=== PATIENT | male | born 1945 | race Caucasian/White ===

== ENCOUNTER 2017-08-26 08:01 | Emergency (ER) | payer OTHER ==
[~2017-08-26] VITALS: Ht 175.3 cm; Wt 82.1 kg
[~2017-08-26 08:01] MED LIST: ACCUNEB SO1.25 MG/1 INH; ADULT LOW DOSE81 MG PO; ADVAIR 250-501 EACH INH; ADVAIR HFA 230M12 GM INH; ALLERGY10 MG PO; AMOXICILLIN 50500 M1 PO; ATENOLOL 100MG100 M2 PO; CARDIZEM CD180 MG PO; CIPROFLOXACIN500 M1 PO; CLARITIN10 MG PO; COUMADIN 2.5MG2.5 M1 PO; DUONEB 2.5-0.5 M3 ML INH; FISHOIL PO; FLAGYL500 MG PO; FLONASE 0.05%50 MCG NASAL; FLOVENT HFA 4444 MCG INH; LISINOPRIL40 MG PO; LOSARTAN POTAS100 MG PO; METOPROLOL TAR100 MG PO; NORCO 5-325 TA1 EACH PO; PRAVACHOL40 MG PO; PREDNISONE50 MG PO; TOPROL XL50 MG PO; ZETIA10 MG PO; ZOFRAN4 MG PO
[2017-08-26] MEDS ORDERED: DYMISTA NASAL S23 GM NASAL (08:16)
[2017-08-26] MEDS ORDERED: ALDACTONE25 MG PO (08:18)
[2017-08-26 08:25] LABS: HEMATOCRIT 55.3 % (42.0-52.0); HEMOGLOBIN 18.5 gm/dL (14.0-18.0); MCH 30.1 pg (26.0-34.0); MCHC 33.5 g/dL (28.0-37.0); MPV 10.5 fl. (7.2-11.1); NUCLEATED RBCS 0 /100WBC; PLATELET COUNT* 156 thou/uL (150-400); RBC 6.14 mil/uL (4.50-6.00); RDW-CV 13.6 % (10.5-14.5); WBC 14.7 thou/uL (4.0-11.0)
[2017-08-26 08:36] LABS: ANION GAP 15 mmol/L (7-16); BUN 32 mg/dL (7-18); CALCIUM 9.4 mg/dL (8.5-10.1); CHLORIDE 98 mmol/L (98-107); CO2 21 mmol/L (21-32); CREATININE 2.5 mg/dL (0.6-1.3); GLUCOSE 107 mg/dL (70-99); POTASSIUM 4.9 mmol/L (3.5-5.1); SODIUM 134 mmol/L (136-145)
[2017-08-26 08:43] LABS: ALBUMIN 4.3 g/dL (3.4-5.0); ALKALINE PHOSPHATASE 114 U/L (46-116); LIPASE 206 U/L (73-393); SGOT 59 U/L (15-37); SGPT 52 U/L (30-65); TOTAL BILIRUBIN 1.6 mg/dL (<0.1-1.0); TOTAL PROTEIN 8.3 g/dL (6.4-8.2); TROPONIN-I LEVEL <0.06 ng/mL (<0.06)
[2017-08-26 08:47] LABS: ABSOLUTE LYMPHOCYTES 2.4 thou/uL (0.8-5.3); ABSOLUTE MONOCYTES 2.1 thou/uL (0.0-1.2); ABSOLUTE NEUTROPHILS 10.3 thou/uL (1.6-8.1)
[2017-08-26 08:48] LABS: LARGE PLATELETS RARE; PLATELET ESTIMATE ADEQUATE
[2017-08-26 08:56] LABS: APTT 34.8 Seconds (25.0-31.3); INR 1.8; PROTIME 17.4 Seconds (9.20-11.50)
[2017-08-26] MEDS ORDERED: CIPROFLOXACIN500 M1 PO (09:56)
[2017-08-26 10:12] VITALS: BP 142/79
--- NOTE | 2017-08-27 14:31 | EKG ---
[place] [address] ELECTROCARDIOGRAM REPORT Name: LIONEL COPE Room: [facility]#: [id number] Admission: 08/26/17 Attend Phys: Discharge: 08/26/17 Date of : 49 Report #: [id number] THIS REPORT FOR: //name// [facility] ED Test Date: 2017-08-26 Test Time: 08:25:24 Pat Name: LIONEL COPE Department: Room: Gender: M Harness Cutter: LUZ MARIA : 1945 Requested By: Chapin Sarabia Order Number: [id number] MD: Jose Avilez Measurements Intervals [place] Rate: 123 P: [place]: QRS: 78 QRSD: 115 T: -58 QT: 313 QTc: 448 Interpretive Statements Atrial fibrillation Nonspecific intraventricular conduction delay Nonspecific repol abnormality, diffuse leads Baseline wander in lead(s) V3 Compared to ECG 03/27/2017 02:57:31 No significant changes Electronically Signed On 08-27-2017 14:31:16 CDT by Jose Avilez [email or web address] <ELECTRONICALLY SIGNED> By: Jose Avilez MD, FACC 08/27/17 1431 0825 0825 Jose Avilez MD, [facility] /EPI
== END 2017-08-26 10:15 | disposition home or self-care (01) ==
LOC: M.ERS 08:01
PROVIDERS: Family Medicine
DX: R19.7 Diarrhea, unspecified (principal); I10 Essential (primary) hypertension; Z90.89 Acquired absence of other organs; I25.10 Atherosclerotic heart disease of native coronary artery without angina pectoris; Z88.2 Allergy status to sulfonamides

== ENCOUNTER 2018-04-29 09:59 | Inpatient (IN) | payer OTHER ==
[~2018-04-29] VITALS: Ht 172.7 cm; Wt 83.0 kg
[~2018-04-29 09:59] MED LIST changes: +ALDACTONE25 MG PO; +DYMISTA NASAL S23 GM NASAL; +METOPROLOL SUCC50 MG PO; -METOPROLOL TAR100 MG PO
[2018-04-29 10:05] VITALS: BP 202/109
[2018-04-29] MEDS ORDERED: THERA TEARS15 ML OPHTHALMIC (10:08)
[2018-04-29] MEDS ORDERED: CARDIZEM CD120 MG PO (10:09)
[2018-04-29] MEDS ORDERED: IPRATROPIU0.2 MG/1 M INH (10:09)
[2018-04-29] MEDS ORDERED: VITAMIN D31000 UNIT PO (10:10)
[2018-04-29] MEDS ORDERED: ROCALTROL0.25 MCG PO (10:10)
[2018-04-29] MEDS ORDERED: TRIAMCINOLONE A80 G2 TOP (10:11)
[2018-04-29 10:26] LABS: ABSOLUTE BASOPHILS 0.1 thou/uL (0.0-0.2); ABSOLUTE EOSINOPHILS 0.1 thou/uL (0.0-0.7); ABSOLUTE LYMPHOCYTES 2.8 thou/uL (0.8-5.3); ABSOLUTE NEUTROPHILS 7.5 thou/uL (1.6-8.1); BASOPHILS 1.2 %; EOSINOPHILS 0.6 %; HEMATOCRIT 49.6 % (42.0-52.0); HEMOGLOBIN 16.3 gm/dL (14.0-18.0); LYMPHOCYTES 24.2 %; MCH 30.4 pg (26.0-34.0); MCHC 32.9 g/dL (28.0-37.0); MCV 92.4 fL (80.0-100.0); MPV 9.6 fl. (7.2-11.1); NUCLEATED RBCS 0 /100WBC; PLATELET COUNT* 211 thou/uL (150-400); RBC 5.37 mil/uL (4.50-6.00); RDW-CV 13.9 % (10.5-14.5); WBC 11.6 thou/uL (4.0-11.0)
[2018-04-29 10:33] LABS: ANION GAP 7 mmol/L (7-16); BUN 23 mg/dL (7-18); CALCIUM 9.4 mg/dL (8.5-10.1); CHLORIDE 100 mmol/L (98-107); CO2 31 mmol/L (21-32); GLUCOSE 109 mg/dL (70-99); POTASSIUM 4.8 mmol/L (3.5-5.1); SODIUM 138 mmol/L (136-145)
[2018-04-29 10:34] LABS: INR 2.8; PROTIME 28.8 Seconds (9.20-11.50)
[2018-04-29 10:44] LABS: ALBUMIN 4.4 g/dL (3.4-5.0); ALKALINE PHOSPHATASE 87 U/L (46-116); LIPASE 262 U/L (73-393); NT-PRO BRAIN NAT PEPTIDE 1188 pg/mL (<300); SGOT 30 U/L (15-37); SGPT 28 U/L (30-65); TOTAL BILIRUBIN 1.4 mg/dL (<0.1-1.0); TOTAL PROTEIN 7.8 g/dL (6.4-8.2); TROPONIN-I LEVEL <0.06 ng/mL (<0.06)
[2018-04-29 11:54] VITALS: BP 171/95
[2018-04-29 12:21] VITALS: BP 205/95
[2018-04-29 16:14] VITALS: BP 148/94
[2018-04-29 20:00] VITALS: BP 155/104
[2018-04-30] VITALS (7 sets, daily range): BP systolic 148–197; BP diastolic 78–105
[2018-04-30 02:05] LABS: GLYCOHEMOGLOBIN (HGB A1C) 5.9 % (4.8-5.6)
[2018-04-30 04:35] LABS: ABSOLUTE BASOPHILS 0.1 thou/uL (0.0-0.2); ABSOLUTE LYMPHOCYTES 1.7 thou/uL (0.8-5.3); ABSOLUTE MONOCYTES 0.9 thou/uL (0.0-1.2); ABSOLUTE NEUTROPHILS 5.3 thou/uL (1.6-8.1); BASOPHILS 0.6 %; EOSINOPHILS 0.6 %; HEMATOCRIT 42.8 % (42.0-52.0); LYMPHOCYTES 21.4 %; MCH 30.5 pg (26.0-34.0); MCHC 33.3 g/dL (28.0-37.0); MCV 91.5 fL (80.0-100.0); MONOCYTES 10.8 %; MPV 9.8 fl. (7.2-11.1); NUCLEATED RBCS 0 /100WBC; PLATELET COUNT* 166 thou/uL (150-400); POLYS 66.6 %; RBC 4.68 mil/uL (4.50-6.00); RDW-CV 13.7 % (10.5-14.5)
[2018-04-30 04:36] LABS: INR 2.5; PROTIME 25.5 Seconds (9.20-11.50)
[2018-04-30 04:43] LABS: CHOLESTEROL 124 mg/dL (<200); HDL CHOLESTEROL 35 mg/dL (>40); LDL CHOLESTEROL 69 mg/dL (<100); TC:HDL 3.5 Ratio (Not establshd); TRIGLYCERIDE 103 mg/dL (<150); VLDL 21 mg/dL (<40)
[2018-04-30 04:46] LABS: HEMOGLOBIN 14.3 gm/dL (14.0-18.0)
[2018-04-30 04:54] LABS: CALCIUM 8.1 mg/dL (8.5-10.1); CREATININE 1.7 mg/dL (0.6-1.3); POTASSIUM 4.1 mmol/L (3.5-5.1)
[2018-04-30 05:07] LABS: SERUM ASSESSMENT CLEAR
--- NOTE | 2018-04-30 15:35 | EKG ---
[place] [address] ELECTROCARDIOGRAM REPORT Name: LIONEL COPE Room: [address] ADM IN [facility].#: [id number] Admission: 04/29/18 Attend Phys: Mychal Clayton MD Discharge: Date of : 49 Report #: [id number] THIS REPORT FOR: //name// [facility] ED Test Date: 2018-04-29 Test Time: 10:06:27 Pat Name: LIONEL COPE Department: Room: [facility] Gender: Standards Analyst: Gorge PASCUAL : 1945 Requested By: Tor Carrillo Order Number: [id number] MD: Jose Avilez Measurements Intervals [place] Rate: 87 P: [place]: QRS: 57 QRSD: 110 T: -56 QT: 393 QTc: 473 Interpretive Statements Atrial fibrillation Inferior infarct, age indeterminate, possible Baseline wander in lead(s) V4 Compared to ECG 08/26/2017 08:25:24 Myocardial infarct finding now present Intraventricular conduction delay no longer present Early repolarization no longer present Electronically Signed On 04-30-2018 15:35:41 VETERINARY INSPECTOR by Jose Avilez [email or web address] <ELECTRONICALLY SIGNED> By: Jose Avilez MD, FACC 04/30/18 1535 1006 1006 Jose Avilez MD, FACC /EPI
--- NOTE | 2018-04-30 18:13 | CON ---
[address] [address] CONSULTATION Name: LIONEL COPE Room: [address] IN .R.#: [id number] Admission: 04/29/18 Attend Phys: Mychal Clayton MD Discharge: Date of : 49 Report #: [id number] THIS REPORT FOR: //name// CC: Mychal Argueta DATE OF SERVICE: 04/30/2018 HISTORY OF PRESENT ILLNESS: This is a 72-year-old male patient for whom a routine consultation was requested earlier in the afternoon for TIA. As I understand from the nurses as well as reviewing the records from Emergency Room and H and P and later on taking the history from the patient that he noticed that his right upper extremity was not working properly, although, he noticed these symptoms around 9:30 when he was trying to move his computer mouse, I am not certain that the symptoms started at that time. Prior to that, he did not do anything much with the right arm and may not have noticed those symptoms. It is very possible that the patient may have just woken up with the symptoms. In any event, he came to Emergency Room. He was seen by Dr. Carrillo. Dr. Carrillo did a CT scan of the head and did the blood workup. 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 Therefore, he was not considered a candidate for TPA and he was admitted under Dr. Clayton who did the patient H and P and that was reviewed. Subsequently, a routine neurological consultation was requested in this patient. I talked to the nurses and it looks like the patient's symptoms were rather minor when he came in, but his symptoms have progressed since then. He has developed speech difficulty and that is worse than when he came in. On my examination later on, he is definitely weak in the right upper extremity. REVIEW OF SYSTEMS: His 14-point review of system was carried out. He has a history of TIA, but that history is not clearly defined. He has a history of COPD. He does have a history of hypertension and his blood pressure was pretty high when he came. He does not know whether the blood pressure goes that high or not. He does apparently also has a history of atrial fibrillation. This was his relevant 14-point review of system. He does have a history of bypass surgery. His kidney function is pretty significantly impaired and according to the record, he has a 20% functional right kidney and 70% functional left kidney. I am not totally sure about that, but that has been noticed in his records. His creatinine has been 2 here and GFR has been 33. PAST MEDICAL HISTORY: Positive for both coronary artery disease as well as TIAs in the past. FAMILY HISTORY: Negative for any early age stroke. SOCIAL HISTORY: He does not smoke, but he drinks 2 [place] [address] CONSULTATION Name: LIONEL COPE Room: [address] IN [facility]#: [id number] Admission: 04/29/18 Attend Phys: Mychal Clayton MD Discharge: Date of : 49 Report #: [id number] PHYSICAL EXAMINATION: Indicates he is alert. He is responsive. He is oriented, but his speech is markedly slurred and appeared to be dysarthric. His cranial nerve examination 2-12 indicates right facial weakness. He is definitely weak in the right upper extremity. Right lower extremity, he moves, but he does appear to be weaker there. His reflexes are symmetrical. He does somewhat poorly with the right [id number]-iddc, but it is difficult to tell because he is weak there. He has no thyroid mass. His hearing looks adequate. Heart examination indicates that he has a replaced wall. He does have rhonchi, which are scattered. His blood pressure has been 148/85. It was pretty high when he came in and at one time, it was 202/109. His pulse rate is 82, temperature is 97.7. I reviewed his MRI films and it does show an acute stroke on the left side of the josiah. They are still formatting his MRA, but it looks like his basilar artery is patent. IMPRESSION: 1. 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 The best I can tell the basilar artery is patent, but we will await the final report from the radiologist. 2. History of hypertension. We need to allow permissive hypertension in this patient. RECOMMENDATION: Multiple things were considered in this patient and unfortunately, I do not think much can be done. This patient was not a TPA candidate because he is on Coumadin and his INR was 2.8, and TPA was not given by Emergency Room physician because of that and that was appropriate thing to do because the patient is not a TPA candidate because of being on Coumadin and INR being 2.8. He has deteriorated as far as neurological deficit is concerned. That is very typical of lacunar cerebrovascular accident or a small vessel cerebrovascular accident. Unfortunately, nothing can be done about that. I still suspect he may have woken up with the cerebrovascular accident and he just noticed the deficit at 9:30 when he tried to use his computer. I went ahead and did an extensive workup in this patient tonight to see if he can find any large vessel disease or any intervention, which can be done in this patient. Unfortunately, we did not find any disease for which intervention can be done in this patient so far, especially because basilar artery is patent. All the images are not out yet and it was just a single image, which I was able to look at. I will see this patient later on again today and add an addendum to that, but have discussed all of it in detail with the patient. Thank you [place] [address] CONSULTATION Name: LIONEL COPE Jenn Room: [address] IN [facility]#: [id number] Admission: 04/29/18 Attend Phys: Mychal Clayton MD Discharge: Date of : 49 Report #: [id number] this addendum is being added at the time of signing this note. Patient was reevaluated today. Patient's neuro deficits stabilized after increasing his blood pressure to some extend. So I asked the nurses to keep his blood pressure between 150-180 systolic. They should coordinate the choice of his antihypertensive with business continuity director. His examination this morning was not much different than last night. Official report of the MRA indicated the same thing. 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 He is already on anticoagulation and aspirin. We will await rest of the workup to see if anything differently to be done. I discussed the situation again with the patient and the family. More than 50 minutes of time was spent taking care of this patient and majority of that time was spent counseling the patient and coordinating his care. Dr. Acharya will follow-up this patient from tomorrow and look at rest the workup and leave further recommendation <ELECTRONICALLY SIGNED> By: Nirav Browning MD 04/30/18 1813 0222 [id number] Browning MD /nt
[2018-05-01] VITALS (7 sets, daily range): BP systolic 143–173; BP diastolic 72–94
[2018-05-01 04:46] LABS: INR 1.8; PROTIME 18.1 Seconds (9.20-11.50)
[2018-05-01 04:52] LABS: ALBUMIN 3.4 g/dL (3.4-5.0); CALCIUM 8.2 mg/dL (8.5-10.1); CREATININE 1.7 mg/dL (0.6-1.3); POTASSIUM 4.1 mmol/L (3.5-5.1); TOTAL BILIRUBIN 2.4 mg/dL (<0.1-1.0); TOTAL PROTEIN 6.2 g/dL (6.4-8.2)
[2018-05-01 04:53] LABS: ABSOLUTE BASOPHILS 0.1 thou/uL (0.0-0.2); ABSOLUTE EOSINOPHILS 0.1 thou/uL (0.0-0.7); ABSOLUTE LYMPHOCYTES 1.8 thou/uL (0.8-5.3); ABSOLUTE MONOCYTES 0.9 thou/uL (0.0-1.2); ABSOLUTE NEUTROPHILS 5.4 thou/uL (1.6-8.1); BASOPHILS 0.6 %; EOSINOPHILS 0.6 %; HEMATOCRIT 45.4 % (42.0-52.0); HEMOGLOBIN 14.9 gm/dL (14.0-18.0); LYMPHOCYTES 21.7 %; MCH 30.3 pg (26.0-34.0); MCHC 32.8 g/dL (28.0-37.0); MCV 92.4 fL (80.0-100.0); MONOCYTES 11.5 %; MPV 10.3 fl. (7.2-11.1); NUCLEATED RBCS 0 /100WBC; PLATELET COUNT* 177 thou/uL (150-400); POLYS 65.6 %; RBC 4.91 mil/uL (4.50-6.00); RDW-CV 14.1 % (10.5-14.5); WBC 8.3 thou/uL (4.0-11.0)
[2018-05-01] MEDS ORDERED: ASPIRIN81 M2 PO (12:34)
[2018-05-01] MEDS ORDERED: FOLIC ACID 1 MG1 MG PO (12:37)
[2018-05-01] MEDS ORDERED: VITAMIN B-1100 M1 PO (12:38)
[2018-05-01] MEDS ORDERED: CENTRUM SILVER1 EAC4 PO (12:39)
== END 2018-05-01 13:40 | disposition home or self-care (01) | DRG 65 ==
LOC: M.ERS 09:59 → M.2W 11:04 → M.TBA-ER 11:04 → M.2W 12:24
PROVIDERS: Emergency Medicine; ADMIT Internal Medicine
DX: I63.231 Cerebral infarction due to unspecified occlusion or stenosis of right carotid arteries (principal); N17.9 Acute kidney failure, unspecified; I13.0 Hypertensive heart and chronic kidney disease with heart failure and stage 1 through stage 4 chronic kidney disease, or unspecified chronic kidney disease; I50.9 Heart failure, unspecified; I48.91 Unspecified atrial fibrillation; I25.10 Atherosclerotic heart disease of native coronary artery without angina pectoris; F10.20 Alcohol dependence, uncomplicated; N18.9 Chronic kidney disease, unspecified; E53.8 Deficiency of other specified B group vitamins; J44.9 Chronic obstructive pulmonary disease, unspecified; Z87.891 Personal history of nicotine dependence; Z95.1 Presence of aortocoronary bypass graft; Z95.2 Presence of prosthetic heart valve; Z90.49 Acquired absence of other specified parts of digestive tract; Z79.01 Long term (current) use of anticoagulants; Z79.899 Other long term (current) drug therapy; Z88.2 Allergy status to sulfonamides

== ENCOUNTER 2019-02-11 14:56 | Inpatient (IN) | payer OTHER ==
[~2019-02-11] VITALS: Ht 172.7 cm; Wt 76.7 kg
[~2019-02-11 14:56] MED LIST changes: +ASPIRIN81 M2 PO; +CARDIZEM CD120 MG PO; +CENTRUM SILVER1 EAC4 PO; +FOLIC ACID 1 MG1 MG PO; +IPRATROPIU0.2 MG/1 M INH; +ROCALTROL0.25 MCG PO; +THERA TEARS15 ML OPHTHALMIC; +TRIAMCINOLONE A80 G2 TOP; +VITAMIN B-1100 M1 PO; +VITAMIN D31000 UNIT PO
[2019-02-11 14:57] VITALS: BP 180/91
[2019-02-11 15:49] LABS: ABSOLUTE BASOPHILS 0.1 thou/uL (0.0-0.2); ABSOLUTE EOSINOPHILS 0.1 thou/uL (0.0-0.7); ABSOLUTE LYMPHOCYTES 1.9 thou/uL (0.8-5.3); ABSOLUTE MONOCYTES 0.8 thou/uL (0.0-1.2); ABSOLUTE NEUTROPHILS 5.9 thou/uL (1.6-8.1); BASOPHILS 0.9 %; EOSINOPHILS 0.8 %; HEMATOCRIT 45.2 % (42.0-52.0); HEMOGLOBIN 15.4 gm/dL (14.0-18.0); LYMPHOCYTES 21.1 %; MCH 31.5 pg (26.0-34.0); MCV 92.6 fL (80.0-100.0); MONOCYTES 9.7 %; MPV 10.1 fl. (7.2-11.1); NUCLEATED RBCS 0 /100WBC; PLATELET COUNT* 174 thou/uL (150-400); POLYS 67.5 %; RBC 4.88 mil/uL (4.50-6.00); RDW-CV 14.4 % (10.5-14.5); WBC 8.8 thou/uL (4.0-11.0)
[2019-02-11 15:59] LABS: ANION GAP 8 mmol/L (7-16); BUN 17 mg/dL (7-18); CALCIUM 8.6 mg/dL (8.5-10.1); CHLORIDE 106 mmol/L (98-107); CO2 28 mmol/L (21-32); CREATININE 1.6 mg/dL (0.6-1.3); GLUCOSE 106 mg/dL (70-99); POTASSIUM 4.1 mmol/L (3.5-5.1); SODIUM 142 mmol/L (136-145)
[2019-02-11 16:02] LABS: APTT 33.4 Seconds (25.0-31.3); INR 2.8; PROTIME 27.6 Seconds (9.20-11.50)
[2019-02-11 16:10] LABS: ALBUMIN 3.8 g/dL (3.4-5.0); ALKALINE PHOSPHATASE 103 U/L (46-116); NT-PRO BRAIN NAT PEPTIDE 2147 pg/mL (<300); SGOT 26 U/L (15-37); SGPT 27 U/L (30-65); TOTAL BILIRUBIN 1.2 mg/dL (<0.1-1.0); TOTAL PROTEIN 6.8 g/dL (6.4-8.2); TROPONIN-I LEVEL <0.06 ng/mL (<0.06)
[2019-02-11] MEDS ORDERED: LISINOPRIL10 MG PO (17:00)
[2019-02-11 17:43] LABS: URINE BILIRUBIN NEGATIVE (Negative); URINE BLOOD NEGATIVE (Negative); URINE CLARITY CLEAR; URINE COLOR YELLOW; URINE GLUCOSE-RANDOM NEGATIVE (Negative); URINE KETONES NEGATIVE (Negative); URINE LEUKOCYTES-REFLEX NEGATIVE (Negative); URINE NITRITE-REFLEX NEGATIVE (Negative); URINE PROTEIN TRACE (Negative); URINE SPECIFIC GRAVITY 1.015 (1.005-1.030); URINE UROBILINOGEN 0.2 E.U./dl (0.2-1.0)
[2019-02-11 18:28] VITALS: BP 179/104
--- NOTE | 2019-02-11 19:03 | NUR ---
ER ADMIT TO ROOM 223 VIA CART FROM ER. ADMISSION HX COMPLETED. BEHAVIORAL INTERVENTION SPECIALIST PLACED TRACKING AFIB. DENIES DIZZINESS, PAIN OR ANY DISCOMFORT AT THIS TIME. ORIENTED TO ROOM/CALL LIGHT AND INTRODUCED TO PLAN OF CARE. AT BEDSIDE. WILL PASS ON REPORT TO ONCOMING NURSE FOR CONTINUATION OF CARE.
[2019-02-11 20:00] VITALS: BP 157/73
[2019-02-12] VITALS: BP 121/70
[2019-02-12 04:00] VITALS: BP 127/70
--- NOTE | 2019-02-12 05:03 | NUR ---
PATIENT SLEPT WELL DURING THE NIGHT. PT USES CALL LIGHT APPROPRIATELY FOR ASSISTANCE TO THE BATHROOM. PT SAID HE IS STILL DIZZY WHEN AMBULATING AND PT HAD ONE EPISODE OF NAUSEA AFTER RETURNING FROM THE BATHROOM. ZOFRAN GIVEN AND AFTER CHECKING BACK WITH THE PATIENT HE SAID HE FELT BETTER. FREQUENTLY USED ITEMS AND CALL LIGHT WITHIN REACH. SIDERAILS UPX2 AND BED ALARM ON. WILL CONTINUE TO MONITOR.
[2019-02-12 07:37] LABS: ALBUMIN 3.3 g/dL (3.4-5.0); ALKALINE PHOSPHATASE 92 U/L (46-116); ANION GAP 7 mmol/L (7-16); BUN 14 mg/dL (7-18); CALCIUM 8.8 mg/dL (8.5-10.1); CHLORIDE 106 mmol/L (98-107); CHOLESTEROL 127 mg/dL (<200); CO2 27 mmol/L (21-32); CREATININE 1.5 mg/dL (0.6-1.3); GLUCOSE 99 mg/dL (70-99); HDL CHOLESTEROL 38 mg/dL (>40); LDL CHOLESTEROL 72 mg/dL (<100); POTASSIUM 4.6 mmol/L (3.5-5.1); SGOT 22 U/L (15-37); SGPT 23 U/L (30-65); SODIUM 140 mmol/L (136-145); TC:HDL 3.3 Ratio (Not establshd); TOTAL BILIRUBIN 1.5 mg/dL (<0.1-1.0); TOTAL PROTEIN 6.3 g/dL (6.4-8.2); TRIGLYCERIDE 86 mg/dL (<150); VLDL 17 mg/dL (<40)
[2019-02-12 07:39] LABS: SERUM ASSESSMENT Clear
[2019-02-12 08:00] VITALS: BP 163/88
--- NOTE | 2019-02-12 10:27 | EKG ---
[place] [address] ELECTROCARDIOGRAM REPORT Name: LIONEL COPE Room: [address] ADM IN [facility]#: [id number] Admission: 02/11/19 Attend Phys: Isaiah Crow Discharge: Date of : 49 Report #: [id number] THIS REPORT FOR: //name// [facility] ED Test Date: 2019-02-11 Test Time: 15:34:55 Pat Name: LIONEL COPE Department: Room: [facility] Gender: M Change Lead: : 1945 Requested By: Chapin Sarabia Order Number: [id number] MD: Dean Castillo Measurements Intervals [place] Rate: 87 P: [place]: QRS: 64 QRSD: 113 T: -46 QT: 390 QTc: 470 Interpretive Statements Atrial fibrillation Compared to ECG 04/29/2018 10:06:27 No significant changes Electronically Signed On 02-12-2019 10:26:58 CDT by Dean Castillo [email or web address] <ELECTRONICALLY SIGNED> By: Dean Castillo MD, [facility] 02/12/19 1026 1534 1534 Dean Castillo MD, FAC /EPI
[2019-02-12 12:25] VITALS: BP 163/95
--- NOTE | 2019-02-12 14:26 | NUR ---
MET WITH PT AND TO DISCUSS HOME SITUATION/DC PLANNING. PT LIVES WITH . HE IS INDEPENDENT WITH ADLS. HAS NEBULIZER AND CPAP. STATES HE DOESN'T WEAR THE CPAP, 'CAN'T SLEEP ON MY SIDE WITH IT.' PT HAS HAD HH IN PAST BUT NOT BEEN TO SNF. HE PLANS TO RETURN HOME AT [place]. WILL FOLLOW
[2019-02-12 16:02] VITALS: BP 165/93
--- NOTE | 2019-02-12 17:59 | NUR ---
PT A/O, NIH 0. TELE TRACKING AFIB AND ALL VSS ON ROOM AIR. DENIES CP, SOA. STILL HAVING SOME DIZZINESS WITH AMBULATION. EDUCATEDON SAFETY AND PLAN OF CARE. PLEASE SEE ASSESSMENT FOR ADDITIONAL INFORMATION. WILL CONT TO MONITOR
[2019-02-12 20:00] VITALS: BP 155/99
--- NOTE | 2019-02-12 23:00 | NUR ---
PT ALERT ORIENTED. NIHSS 0. UP WITH STD BY AND A WALKER. TELEMETRY SHOWS AFIB. DENIES PAIN. ON RA.
[2019-02-13] VITALS (7 sets, daily range): BP systolic 138–173; BP diastolic 76–90
[2019-02-13 02:10] LABS: GLYCOHEMOGLOBIN (HGB A1C) 5.8 % (4.8-5.6)
[2019-02-13 05:30] LABS: INR 2.5; PROTIME 24.8 Seconds (9.20-11.50)
--- NOTE | 2019-02-13 08:42 | NUR ---
ASSUMED CARE OF PT AT 0730. PT RESTING IN BED WAITING FOR BREAKFAST. PT A&0X4, DENIES ANY PAIN OR SHORTNESS OF BREATH AT THIS TIME. PT TRACING AFIB ON THE MAGNETIC PROSPECTING OPERATOR. RATE CONTROLLED IN THE 70'S. PT ON RA SAT UPPER 90'S. PT UP WITH 1 WALKER SBA. PT GOAL FOR TODAY IS WORK WITH PT AND OT, NEURO CONSULT IN PLACE, AND MONITOR INR. NIH COMPLETED-PT SCORING 0. PT DENIES ANY DIZZINESS WITH AMBULATION. AM ASSESSMENT CHARTED. MEDICATIONS PER JUL. PT REPOSITIONS SELF. HOURLY ROUNDING OBSERVED. BED IN LOW POSITION. CALL LIGHT WITHIN REACH. WILL CONTINUE PLAN OF CARE.
--- NOTE | 2019-02-13 14:16 | NUR ---
I HAVE REVIEWED THE STUDENT'S CHARTING.
--- NOTE | 2019-02-13 17:00 | 2DMMODE ---
[place] [address] 2 D/M-MODE ECHOCARDIOGRAM Name: LIONEL COPE Room: [address] IN [facility]#: [id number] Admission: 02/11/19 Attend Phys: Jarocho Argueta Discharge: Date of : 49 Date of Service: 02/13/19 1659 Report #: [id number] THIS REPORT FOR: //name// APPROVED REPORT Study performed: 02/13/2019 15:04:02 EXAM: Comprehensive 2D, Doppler, and color-flow Echocardiogram Patient Location: In-Patient Room #: [facility] Status: routine BSA: 1.90 HR: 80 bpm BP: 173/90 mmHg Rhythm: Atrial Fibrillation Other Information Study Quality: Good Indications CVA/TIA Atrial Fibrillation Echo Enhancing Agent Indication: Rule out Shunt Agent(s) / Amount(s) Used: Agitated Saline 10 cc 2D Dimensions IVSd: 11.74 (7-11mm) LVOT Diam: 18.70 (18-24mm) LVDd: 54.72 mm PWd: 9.87 (7-11mm) Ascending Ao: 34.24 (22-36mm) LVDs: 44.45 (25-40mm) Aortic Root: 33.49 mm Aortic Valve AoV Peak Melecio.: 1.07 m/s AO Peak Gr.: 4.57 mmHg LVOT Max P.06 mmHg AO Mean Gr.: 2.51 mmHg LVOT Mean P.96 mmHg LVOT Max V: 0.72 m/s AO V2 VTI: 20.88 cm LVOT Mean V: 0.45 m/s DEREK (VTI): 1.82 cm2 LVOT V1 VTI: 13.87 cm Mitral Valve MV Decel. Time: 177.97 ms MV PHT: 51.61 [place] [address] 2 D/M-MODE ECHOCARDIOGRAM Name: LIONEL COPE Room: [address] IN [facility]#: [id number] Admission: 02/11/19 Attend Phys: Jarocho Argueta Discharge: Date of : 49 Date of Service: 02/13/19 1659 Report #: [id number] MVA (PHT): 4.26 cm2 TDI Lateral E' Melecio.: 0.11 m/s Pulmonary Valve PV Peak Melecio.: 0.79 m/s PV Peak Gr.: 2.50 mmHg Tricuspid Valve RAP Estimate: 5.00 mmHg TR Peak Gr.: 22.49 mmHg RVSP: 27.00 mmHg PA Pressure: 27.00 mmHg Left Ventricle The left ventricle is normal size. There is mild global hypokinesis with akinesis of the basal portion of the inferior wall. There is normal left ventricular wall thickness. Left ventricular systolic function is mildly decreased. LVEF is 40-45%. This study is not technically sufficient to allow evaluation of the LV diastolic function due to atrial fibrillation. Right Ventricle The right ventricle is normal size. The right ventricular systolic function is normal. Atria Left atrium is moderately dilated. Interatrial septum is intact without evidence of ASD or PFO. Right atrium is moderately dilated. Aortic Valve The aortic valve is normal in structure. No aortic regurgitation is present. There is no aortic valvular stenosis. 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 There is no mitral valve regurgitation noted. No evidence of mitral valve stenosis. Tricuspid Valve The tricuspid valve is normal in structure. Trace tricuspid regurgitation. The RVSP is 30-35 mmHg. Pulmonic Valve The pulmonary valve is normal in structure. There is no pulmonic [place] [address] 2 D/M-MODE ECHOCARDIOGRAM Name: LIONEL COPE Room: [address]#: [id number] Admission: 02/11/19 Attend Phys: Jarocho Argueta Discharge: Date of : 49 Date of Service: 02/13/19 1659 Report #: [id number] Great Vessels The aortic root is normal in size. IVC is normal in size and collapses >50% with inspiration. Pericardium There is no pericardial effusion. <Conclusion> The left ventricle is normal size. There is normal left ventricular wall thickness. Left ventricular systolic function is mildly decreased. LVEF is 40-45%. There is mild global hypokinesis with akinesis of the basal portion of the inferior wall. Left atrium is moderately dilated. Right atrium is moderately dilated. Interatrial septum is intact without evidence of ASD or PFO. There is a mechanical mitral valve. There is no mitral valve regurgitation noted. No evidence of mitral valve stenosis. Trace tricuspid regurgitation. The RVSP is 30-35 mmHg. IVC is normal in size and collapses >50% with inspiration. <ELECTRONICALLY SIGNED> By: Jose Avilez MD, FACC 02/13/19 1659 58 58 Jose Avilez MD, FACC /INF
[2019-02-13] MEDS ORDERED: FOLIC ACID1 MG PO (17:02)
--- NOTE | 2019-02-13 17:41 | NUR ---
PT COMPLETED ECHO. DISCHARGE ORDERS RECEIVED. DISCHARGE INSTRUCTIONS, CARE NOTES AND FOLLOW UP APPTS GIVEN TO PT. PT COMMUNICATES UNDERSTANDING OF DISCHARGE TEACHING. IV AND RN WOUND REMOVED. PT DISCHARGED WITH ALL BELONGINGS AND PAPERWORK VIA WHEELCHAIR WITH NURSING STAFF TO SPOUSE OWN PERSONAL VEHICLE.
== END 2019-02-13 17:40 | disposition home or self-care (01) | DRG 65 ==
LOC: M.ERS 14:56 → M.2W 16:55 → M.TBA-ER 16:55 → M.2W 18:44
PROVIDERS: Family Medicine; ADMIT Internal Medicine
DX: I63.81 Other cerebral infarction due to occlusion or stenosis of small artery (principal); N17.9 Acute kidney failure, unspecified; D68.69 Other thrombophilia; I10 Essential (primary) hypertension; J43.9 Emphysema, unspecified; I25.10 Atherosclerotic heart disease of native coronary artery without angina pectoris; Z96.1 Presence of intraocular lens; I48.2 Chronic atrial fibrillation; Z88.2 Allergy status to sulfonamides; Z79.899 Other long term (current) drug therapy; Z79.82 Long term (current) use of aspirin; Z79.01 Long term (current) use of anticoagulants; Z95.2 Presence of prosthetic heart valve; Z90.49 Acquired absence of other specified parts of digestive tract; Z86.73 Personal history of transient ischemic attack (TIA), and cerebral infarction without residual deficits; Z87.891 Personal history of nicotine dependence; Z95.1 Presence of aortocoronary bypass graft

== ENCOUNTER 2019-08-05 13:06 | Emergency (ER) | payer OTHER ==
[~2019-08-05] VITALS: Ht 172.7 cm; Wt 79.4 kg
[~2019-08-05 13:06] MED LIST changes: +FOLIC ACID1 MG PO; +LISINOPRIL10 MG PO
[2019-08-05 13:43] LABS: HEMATOCRIT 43.8 % (42.0-52.0); HEMOGLOBIN 14.7 gm/dL (14.0-18.0); MCH 30.3 pg (26.0-34.0); MCHC 33.7 g/dL (28.0-37.0); MCV 89.9 fL (80.0-100.0); MPV 10.1 fl. (7.2-11.1); RBC 4.87 mil/uL (4.50-6.00); RDW-CV 13.8 % (10.5-14.5); WBC 10.3 thou/uL (4.0-11.0)
[2019-08-05 13:52] LABS: INR 1.8; PROTIME 17.8 Seconds (9.20-11.50)
[2019-08-05 15:01] VITALS: BP 165/78
== END 2019-08-05 15:03 | disposition home or self-care (01) ==
LOC: M.ERS 13:06
PROVIDERS: Emergency Medicine Emergency Medical Services
DX: K91.840 Postprocedural hemorrhage of a digestive system organ or structure following a digestive system procedure (principal); I10 Essential (primary) hypertension; I48.91 Unspecified atrial fibrillation; Z88.2 Allergy status to sulfonamides; Z90.49 Acquired absence of other specified parts of digestive tract; Z86.73 Personal history of transient ischemic attack (TIA), and cerebral infarction without residual deficits; Z79.899 Other long term (current) drug therapy; Z79.82 Long term (current) use of aspirin

== ENCOUNTER 2019-08-05 21:01 | Emergency (ER) | payer OTHER ==
[~2019-08-05] VITALS: Ht 175.3 cm; Wt 77.1 kg
[2019-08-05 22:11] LABS: ABSOLUTE BASOPHILS 0.1 thou/uL (0.0-0.2); ABSOLUTE LYMPHOCYTES 2.6 thou/uL (0.8-5.3); ABSOLUTE MONOCYTES 1.4 thou/uL (0.0-1.2); ABSOLUTE NEUTROPHILS 10.1 thou/uL (1.6-8.1); EOSINOPHILS 0.3 %; HEMATOCRIT 44.2 % (42.0-52.0); HEMOGLOBIN 14.9 gm/dL (14.0-18.0); LYMPHOCYTES 18.4 %; MCH 30.4 pg (26.0-34.0); MCHC 33.7 g/dL (28.0-37.0); MCV 90.1 fL (80.0-100.0); MONOCYTES 9.7 %; MPV 10.8 fl. (7.2-11.1); NUCLEATED RBCS 0 /100WBC; PLATELET COUNT* 214 thou/uL (150-400); POLYS 70.6 %; RDW-CV 13.9 % (10.5-14.5); WBC 14.3 thou/uL (4.0-11.0)
[2019-08-05 22:13] LABS: CALCIUM 8.7 mg/dL (8.5-10.1); CREATININE 1.8 mg/dL (0.6-1.3); POTASSIUM 4.1 mmol/L (3.5-5.1)
[2019-08-06 01:10] VITALS: BP 142/81
--- NOTE | 2019-08-06 16:29 | EKG ---
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[place] : 1945 Requested By: Martha Hutson Order Number: [id number] Marlen MD: Jose Avilez Measurements Intervals [place] Rate: 91 P: [place]: QRS: 56 QRSD: 100 T: -61 QT: 371 QTc: 457 Interpretive Statements Atrial fibrillation Inferior Q waves noted Baseline wander in lead(s) V3 Compared to ECG 02/11/2019 15:34:55 significant changes not noted Electronically Signed On 08-06-2019 16:28:05 CDT by Jose Avilez [email or web address] <ELECTRONICALLY SIGNED> By: Jose Avilez MD, FACC 08/06/19 1628 2210 2210 Jose Avilez MD, [facility] /EPI
== END 2019-08-06 01:12 | disposition home or self-care (01) ==
LOC: M.ERS 21:01
PROVIDERS: Emergency Medicine
DX: K06.8 Other specified disorders of gingiva and edentulous alveolar ridge (principal); I10 Essential (primary) hypertension; I48.91 Unspecified atrial fibrillation; I25.10 Atherosclerotic heart disease of native coronary artery without angina pectoris; Z90.49 Acquired absence of other specified parts of digestive tract; Z86.73 Personal history of transient ischemic attack (TIA), and cerebral infarction without residual deficits; Z88.2 Allergy status to sulfonamides

== ENCOUNTER 2020-05-02 08:50 | Inpatient (IN) | payer OTHER ==
[~2020-05-02] VITALS: Ht 172.7 cm; Wt 65.5 kg
[2020-05-02 08:53] VITALS: BP 186/102
[2020-05-02 09:16] LABS: ABSOLUTE BASOPHILS 0.1 thou/uL (0.0-0.2); ABSOLUTE EOSINOPHILS 0.1 thou/uL (0.0-0.7); ABSOLUTE LYMPHOCYTES 2.5 thou/uL (0.8-5.3); ABSOLUTE MONOCYTES 1.3 thou/uL (0.0-1.2); ABSOLUTE NEUTROPHILS 10.6 thou/uL (1.6-8.1); BASOPHILS 0.6 %; EOSINOPHILS 0.4 %; HEMATOCRIT 49.1 % (42.0-52.0); HEMOGLOBIN 16.4 gm/dL (14.0-18.0); LYMPHOCYTES 17.1 %; MCH 30.5 pg (26.0-34.0); MCHC 33.3 g/dL (28.0-37.0); MCV 91.5 fL (80.0-100.0); MPV 9.9 fl. (7.2-11.1); NUCLEATED RBCS 0 /100WBC; PLATELET COUNT* 229 thou/uL (150-400); POLYS 72.9 %; RBC 5.37 mil/uL (4.50-6.00); RDW-CV 14.3 % (10.5-14.5); WBC 14.5 thou/uL (4.0-11.0)
[2020-05-02 09:27] LABS: CALCIUM 8.9 mg/dL (8.5-10.1); CREATININE 1.8 mg/dL (0.6-1.3); POTASSIUM 4.3 mmol/L (3.5-5.1)
[2020-05-02 09:30] LABS: INR 2.3; PROTIME 22.9 Seconds (9.20-11.50)
[2020-05-02 09:32] LABS: ALBUMIN 4.1 g/dL (3.4-5.0); TOTAL BILIRUBIN 1.1 mg/dL (<0.1-1.0); TOTAL PROTEIN 7.9 g/dL (6.4-8.2)
[2020-05-02 12:12] VITALS: BP 139/92
[2020-05-02 12:25] VITALS: BP 158/79
[2020-05-02 12:38] VITALS: BP 138/79
[2020-05-02] MEDS ORDERED: JANTOVEN2.5 MG PO ×2 (14:05→14:06)
[2020-05-02 17:00] VITALS: BP 153/59
--- NOTE | 2020-05-02 17:57 | 2DMMODE ---
[place] [address] 2 D/M-MODE ECHOCARDIOGRAM Name: LIONEL COPE Room: [address] IN [facility]#: [id number] Admission: 05/02/20 Attend Phys: Jarocho Argueta Discharge: Date of : 49 Date of Service: 05/02/20 1757 Report #: [id number] THIS REPORT FOR: cc: Rajesh Argueta Bradley L. DO Liston, Michael J. MD [facility] ~ APPROVED REPORT Study performed: 05/02/2020 15:10:01 EXAM: Comprehensive 2D, Doppler, and color-flow Echocardiogram Patient Location: In-Patient Room [facility] Status: routine BSA: 1.86 HR: 68 bpm BP: 138/79 mmHg Rhythm: Atrial Fibrillation Other Information Study Quality: Good Indications CVA/TIA rule out valvular vegetation no Bubble study done as this patient has had a previous negative study 2D Dimensions IVSd: 10.89 (7-11mm) LVOT Diam: 20.63 (18-24mm) LVDd: 51.69 mm PWd: 9.91 (7-11mm) Ascending Ao: 33.47 (22-36mm) Aortic Root: 32.90 mm Volumes Left Atrial Volume (Systole) LA ESV Index: 54.90 mL/m2 Aortic Valve AoV Peak Melecio.: 0.93 m/s AO Peak Gr.: 3.45 mmHg LVOT Max P.26 mmHg AO Mean Gr.: 2.03 mmHg LVOT Mean P.81 mmHg LVOT Max V: 0.56 m/s AO V2 VTI: 17.98 cm LVOT Mean V: 0.43 m/[place] [address] 2 D/M-MODE ECHOCARDIOGRAM Name: LIONEL COPE Room: [address] IN [facility]#: [id number] Admission: 05/02/20 Attend Phys: Jarocho Argueta Discharge: Date of : 49 Date of Service: 05/02/20 1757 Report #: [id number] DEREK (VTI): 2.15 cm2 LVOT V1 VTI: 11.55 cm TDI Lateral E' Melecio.: 0.11 m/s Pulmonary Valve PV Peak Melecio.: 0.71 m/s PV Peak Gr.: 2.03 mmHg Tricuspid Valve RAP Estimate: 5.00 mmHg TR Peak Gr.: 27.70 mmHg RVSP: 32.00 mmHg PA Pressure: 32.00 mmHg Left Ventricle The left ventricle is normal size. There is mild global hypokinesis. The basal inferior wall appears akinetic. There is normal left ventricular wall thickness. Left ventricular systolic function is mildly decreased. LVEF is 45-50%. This study is not technically sufficient to allow evaluation of the LV diastolic function due to atrial fibrillation. Right Ventricle The right ventricle is normal size. The right ventricular systolic function is normal. Atria Left atrium is severely dilated. Right atrium is moderately dilated. Aortic Valve The aortic valve is normal in structure. No aortic regurgitation is present. There is no aortic valvular stenosis. 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 There is no mitral valve regurgitation noted. No evidence of mitral valve stenosis. Tricuspid Valve The tricuspid valve is normal in structure. Trace tricuspid regurgitation. Mild pulmonary hypertension. The RVSP is 35-40 mmHg. Pulmonic Valve The pulmonary valve is normal in structure. There is no pulmonic [place] [address] 2 D/M-MODE ECHOCARDIOGRAM Name: LIONEL COPE Room: [address]#: [id number] Admission: 05/02/20 Attend Phys: Jarocho Argueta Discharge: Date of : 49 Date of Service: 05/02/20 1757 Report #: [id number] Great Vessels The aortic root is normal in size. IVC is normal in size and collapses >50% with inspiration. Pericardium There is no pericardial effusion. <Conclusion> The left ventricle is normal size. There is normal left ventricular wall thickness. Left ventricular systolic function is mildly decreased. LVEF is 45-50%. This study is not technically sufficient to allow evaluation of the LV diastolic function due to atrial fibrillation. There is mild global hypokinesis. The basal inferior wall appears akinetic. Left atrium is severely dilated. Right atrium is moderately dilated. There is a mechanical mitral valve. There is no mitral valve regurgitation noted. No evidence of mitral valve stenosis. Trace tricuspid regurgitation. Mild pulmonary hypertension. The RVSP is 35-40 mmHg. IVC is normal in size and collapses >50% with inspiration. <ELECTRONICALLY SIGNED> By: Jose Avilez MD, FACC 05/02/201756 56 56 Jose Avilez MD, FACC /INF
--- NOTE | 2020-05-02 18:07 | EKG ---
[place] [address] ELECTROCARDIOGRAM REPORT Name: LIONEL COPE Room: [address] ADM IN [facility].#: [id number] Admission: 05/02/20 Attend Phys: Jarocho Argueta Discharge: Date of : 49 Date of Service: 05/02/20 0857 Report #: [id number] THIS REPORT FOR: //name// [facility] ED Test Date: 2020-05-02 Test Time: 08:57:15 Pat Name: LIONEL COPE Department: Room: [facility] Gender: M Calliope Player: : 1945 Requested By: Cristofer Ty Order Number: [id number] MD: Jose Avilez Measurements Intervals [place] Rate: 81 P: CT: QRS: 59 QRSD: 109 T: -68 QT: 364 QTc: 423 Interpretive Statements Atrial fibrillation Nonspecific repol abnormality, diffuse leads Compared to ECG 08/05/2019 22:10:32 Early repolarization now present Inferior Q waves no longer present Q waves no longer present Electronically Signed On 05-02-2020 18:07:38 SPORTS EQUIPMENT REPAIRER by Jose Avilez [email or web address] <ELECTRONICALLY SIGNED> By: Jose Avilez MD, FACC 05/02/20 1807 0857 0857 Jose Avilez MD, FAC /EPI
--- NOTE | 2020-05-02 18:55 | NUR ---
RECEIVED REPORT FROM ER. PT ARRIVED TO TELE FLOOR AROUND 1225, ASSUMED CARE. ADMISSION ASSESSMENT, EDUCATION AND HISTORY COMPLETED CHARTED. MEDS RECONCILED. PT PASSED BEDSIDE SWALLOW. NIH 2. PT SEEN BY CARDIO AND NEURO. CARDIO SIGNED OFF. AT BEDSIDE FOR ADMISSION. PT TOLERATIONG DIET. PT CURRENTLY RESTING IN BED. CALL LIGHT IS WITHIN REACH. HOURLY ROUNDING PERFORMED. FALL PRECAUTIONS IN PLACE.
[2020-05-02 19:35] LABS: URINE BILIRUBIN NEGATIVE (Negative); URINE BLOOD NEGATIVE (Negative); URINE CLARITY CLEAR; URINE COLOR YELLOW; URINE GLUCOSE-RANDOM NEGATIVE (Negative); URINE KETONES NEGATIVE (Negative); URINE LEUKOCYTES-REFLEX NEGATIVE (Negative); URINE NITRITE-REFLEX NEGATIVE (Negative); URINE PROTEIN 1+ (Negative); URINE SPECIFIC GRAVITY 1.025 (1.005-1.030); URINE UROBILINOGEN 0.2 E.U./dl (0.2-1.0)
[2020-05-02 20:20] VITALS: BP 120/63
[2020-05-03 00:11] VITALS: BP 97/65
[2020-05-03 05:22] VITALS: BP 117/63
--- NOTE | 2020-05-03 05:40 | NUR ---
PT CARE ASSUMED AT 1930. SAT MAINTAINED IN RA. ALERT ADN ORIENTED X4 BUT FORGETFUL. DENIES PAIN AND SOB. CALL LIGHT WITHIN REACH AND BED IN LOW POSIITON. HOURLY ROUNDING DONE FOR PT SAFETY.
[2020-05-03 05:59] LABS: ALBUMIN 3.3 g/dL (3.4-5.0); ALKALINE PHOSPHATASE 83 U/L (46-116); ANION GAP 8 mmol/L (7-16); BUN 25 mg/dL (7-18); CHLORIDE 105 mmol/L (98-107); CHOLESTEROL 115 mg/dL (<200); CO2 28 mmol/L (21-32); CREATININE 1.8 mg/dL (0.6-1.3); GLUCOSE 67 mg/dL (70-99); HDL CHOLESTEROL 32 mg/dL (>40); LDL CHOLESTEROL 65 mg/dL (<100); POTASSIUM 4.3 mmol/L (3.5-5.1); SGOT 49 U/L (15-37); SGPT 73 U/L (30-65); SODIUM 141 mmol/L (136-145); TC:HDL 3.6 Ratio (Not establshd); TOTAL BILIRUBIN 1.5 mg/dL (<0.1-1.0); TOTAL PROTEIN 5.9 g/dL (6.4-8.2); TRIGLYCERIDE 92 mg/dL (<150); VLDL 18 mg/dL (<40)
[2020-05-03 06:34] LABS: SERUM ASSESSMENT Clear
[2020-05-03 08:00] VITALS: BP 123/71
[2020-05-03 09:27] LABS: INR 1.8; PROTIME 18.1 Seconds (9.20-11.50)
--- NOTE | 2020-05-03 11:06 | NUR ---
CM SPOKE TO THE PT AND HIS SPOUSE AT THE BEDSIDE TO DISCUSS CM ASSESSMENT. PT A&O BUT FORGETFUL PER SPOUSE, INDEPENDENT WITH ADL'S AND ACTIVE PRIOR TO ADMIT. PT RESIDES AT HOME WITH SPOUSE. PT USES HOME O2, CPAP AND NEBULIZER PROVIDED BY [facility]. NO OTHER DME. PT HAS HH HX BUT COULD NOT RECALL THE NAME. PT HAS 0 HX OF SNF. PT INFORMS THAT HE IS HOPEFUL THAT THE WILL BE ABLE TO GO HOME TODAY. CM WILL REMAIN AVAILABLE TO ASSIST AND FOLLOW NEEDED.
[2020-05-03 12:34] VITALS: BP 157/74
[2020-05-03 16:38] VITALS: BP 144/87
[2020-05-03 19:50] VITALS: BP 160/88
[2020-05-04] VITALS: BP 126/88
[2020-05-04 04:00] VITALS: BP 133/77
[2020-05-04 05:42] LABS: HEMATOCRIT 46.3 % (42.0-52.0); HEMOGLOBIN 15.2 gm/dL (14.0-18.0); MCH 30.3 pg (26.0-34.0); MPV 10.1 fl. (7.2-11.1); RBC 5.03 mil/uL (4.50-6.00); RDW-CV 14.2 % (10.5-14.5); WBC 10.5 thou/uL (4.0-11.0)
[2020-05-04 05:55] LABS: INR 1.5; PROTIME 15.8 Seconds (9.20-11.50)
[2020-05-04 05:56] LABS: ALBUMIN 3.3 g/dL (3.4-5.0); CALCIUM 8.6 mg/dL (8.5-10.1); CREATININE 1.7 mg/dL (0.6-1.3); MAGNESIUM 1.9 mg/dL (1.8-2.4); POTASSIUM 4.4 mmol/L (3.5-5.1); TOTAL BILIRUBIN 1.9 mg/dL (<0.1-1.0); TOTAL PROTEIN 6.3 g/dL (6.4-8.2)
--- NOTE | 2020-05-04 06:00 | NUR ---
PT CARE ASSUMED AT 1930. SAT MAINTAINED IN RA. ALERT AND ORIENTED X4 BUT FORGETFUL. DENIES PAIN AND SOB. CALL LIGHT WITHIN REACH AND BED IN LOW POSIITON. HOURLY ROUNDING DONE FOR PT SAFETY.
[2020-05-04 07:07] LABS: GLYCOHEMOGLOBIN (HGB A1C) 5.8 % (4.8-5.6)
[2020-05-04 07:50] VITALS: BP 161/84
[2020-05-04] MEDS ORDERED: MINOCYCLINE HC100 M2 PO (08:20)
--- NOTE | 2020-05-04 11:10 | NUR ---
PT ALERT AND ORIENTED X4 BUT FORGETFUL. CALL LIGHT WITHIN REACH AND BED IN LOW POSITION. DAUGHTER AT BEDSIDE. KERRIE FORTE GIVEN REPORT. CALL LIGHT WITHIN REACH AND BED IN LOW POSITION. HOURLY ROUNDING DONE FOR PT SAFETY.
[2020-05-04 13:21] VITALS: BP 151/87
[2020-05-04 13:33] VITALS: BP 151/87
== END 2020-05-04 15:05 | disposition home or self-care (01) | DRG 65 ==
LOC: M.ERS 08:50 → M.2W 10:17 → M.TBA-ER 10:17 → M.2W 12:27
PROVIDERS: Emergency Medicine Emergency Medical Services; Internal Medicine; ADMIT Internal Medicine; ATTEND Internal Medicine
DX: I63.89 Other cerebral infarction (principal); D68.69 Other thrombophilia; I48.20 Chronic atrial fibrillation, unspecified; I25.10 Atherosclerotic heart disease of native coronary artery without angina pectoris; J43.9 Emphysema, unspecified; N18.30 Chronic kidney disease, stage 3 unspecified; I65.22 Occlusion and stenosis of left carotid artery; I12.9 Hypertensive chronic kidney disease with stage 1 through stage 4 chronic kidney disease, or unspecified chronic kidney disease; L98.9 Disorder of the skin and subcutaneous tissue, unspecified; Z96.1 Presence of intraocular lens; Z20.828 Contact with and (suspected) exposure to other viral communicable diseases; Z86.73 Personal history of transient ischemic attack (TIA), and cerebral infarction without residual deficits; Z90.49 Acquired absence of other specified parts of digestive tract; Z88.2 Allergy status to sulfonamides; Z79.01 Long term (current) use of anticoagulants; Z79.899 Other long term (current) drug therapy; Z79.82 Long term (current) use of aspirin; I25.2 Old myocardial infarction; Z87.891 Personal history of nicotine dependence; Z95.1 Presence of aortocoronary bypass graft; Z95.4 Presence of other heart-valve replacement

== ENCOUNTER → 2020-05-21 | Outpatient (CLI) | payer OTHER ==
[~2020-05-21] MED LIST changes: +JANTOVEN2.5 MG PO; +MINOCYCLINE HC100 M2 PO
== END ==
LOC: M.MRI 05-13 10:14
PROVIDERS: ATTEND Psychiatry & Neurology Neuromuscular Medicine
DX: I67.82 Cerebral ischemia (principal); I63.9 Cerebral infarction, unspecified; F03.90 Unspecified dementia, unspecified severity, without behavioral disturbance, psychotic disturbance, mood disturbance, and anxiety; I10 Essential (primary) hypertension; I48.91 Unspecified atrial fibrillation; I65.21 Occlusion and stenosis of right carotid artery; I67.89 Other cerebrovascular disease

== ENCOUNTER 2020-12-17 12:11 | Emergency (ER) | payer OTHER ==
[~2020-12-17] VITALS: Ht 172.7 cm; Wt 72.6 kg
[2020-12-17 13:44] VITALS: BP 133/70
== END 2020-12-17 13:45 | disposition home or self-care (01) ==
LOC: M.ERS 12:11
DX: U07.1 COVID-19 (principal); R19.7 Diarrhea, unspecified; I10 Essential (primary) hypertension; I25.2 Old myocardial infarction; J44.9 Chronic obstructive pulmonary disease, unspecified; Z88.2 Allergy status to sulfonamides; Z79.82 Long term (current) use of aspirin; Z79.02 Long term (current) use of antithrombotics/antiplatelets; Z79.899 Other long term (current) drug therapy; Z98.890 Other specified postprocedural states; Z86.73 Personal history of transient ischemic attack (TIA), and cerebral infarction without residual deficits